=== PATIENT | male | born 1960 | race Caucasian/White ===

== ENCOUNTER 2022-04-24 06:41 | Outpatient (REF) | payer OTHER, SELFPAY ==
[2022-04-24 11:57] LABS: Hemoglobin 18.5 g/dl (14.0-18.0); Mean Corpuscular HGB Conc 33.6 g/dl (31.0-36.0); Mean Corpuscular Hemoglobin 31.7 pg (27.0-33.0); Mean Corpuscular Volume 94.3 fL (80.0-98.0); Mean Platelet Volume 9.7 fL (9.4-12.4); Platelet Count 252 X10*3/uL (160-400); Red Blood Count 5.83 X10*6/uL (4.60-5.80); Red Cell Distribution Width 13.8 % (11.0-16.0); White Blood Count 7.3 X10*3/uL (4.8-10.8)
[2022-04-24 12:25] LABS: Alanine Aminotransferase 18 U/L (0-40); Albumin Level 4.5 g/dL (3.5-5.0); Alkaline Phosphatase 80 U/L (39-117); Anion Gap 17 (12-20); Aspartate Amino Transferase 20 U/L (5-37); Bilirubin Total 0.6 mg/dL (0.0-1.0); Blood Urea Nitrogen 12 mg/dL (9-16); Calcium 9.7 mg/dL (8.4-10.2); Carbon Dioxide 24 mmol/L (22-29); Chloride 105 mmol/L (96-108); Cholesterol 195 mg/dL; Estimated Glomerular Filt Rate > 60; Glucose Fasting 79 mg/dL (60-99); HDL Cholesterol 51 mg/dL; LDL Cholesterol Calculated 120 mg/dl; Potassium 4.3 mmol/L (3.3-5.1); Sodium 142 mmol/L (135-145); Total Protein 6.9 g/dL (6.5-8.0); Triglycerides 122 mg/dL
[2022-04-24 12:29] LABS: Prostate Specific Antigen Scr 0.53 ng/mL (<0.05-4.0); TSH reflex Free T4 1.23 uIU/mL (0.32-4.0)
[2022-04-24 14:57] LABS: Creatinine Urine 165.12 mg/dL; Microalbum/Creatinine Ratio Ur 10.2 ug/mg cr
== END 2022-04-24 06:42 | disposition home or self-care (01) ==
LOC: HO.HMGCLDS 06:41
PROVIDERS: PCP Physician Assistant; Visit Provider Physician Assistant
DX: K40.90 Unilateral inguinal hernia, without obstruction or gangrene, not specified as recurrent (principal); I10 Essential (primary) hypertension; R20.2 Paresthesia of skin; F17.200 Nicotine dependence, unspecified, uncomplicated; Z12.5 Encounter for screening for malignant neoplasm of prostate; Z79.899 Other long term (current) drug therapy
CPT/HCPCS: 36415; 80053; 80061; 82043; 84153; 84443; 85027; 99202

== ENCOUNTER 2022-05-10 13:58 | Outpatient (REF) | payer OTHER, SELFPAY ==
--- NOTE | 2022-05-10 08:45 | EMG_ITS ---
Please see scanned EMG / Nerve Conduction Report. MTDD
== END 2022-05-10 13:59 | disposition home or self-care (01) ==
LOC: HO.NEURO 13:58
PROVIDERS: PCP Physician Assistant; Visit Provider Physician Assistant
DX: R20.2 Paresthesia of skin (principal)
CPT/HCPCS: 95885; 95913

== ENCOUNTER 2022-05-13 05:02 | Emergency (ER) | payer OTHER, SELFPAY ==
--- NOTE | ~2022-05-13 | CT_ITS ---
EXAMINATION: CT ABDOMEN AND PELVIS WITHOUT CONTRAST CLINICAL INFORMATION: Right inguinal hernia x1 year. COMPARISON: None TECHNIQUE: Multidetector volumetric imaging was performed from the superior aspect of the liver through the pubic symphysis. Sagittal and coronal reformatted images were obtained on the technologist's workstation. This CT examination was performed using dose optimization techniques as appropriate, variously including the following: *Automated exposure control *Adjustment of mA and/or kV according to patient size (this includes techniques or standardized protocols for targeted exams where dose is matched to indication/reason for exam; i.e. extremities or head) *Use of iterative reconstruction technique DLP: 544 mGy-cm FINDINGS: LUNG BASES: The visualized lung bases are unremarkable. LIVER, GALLBLADDER, AND BILIARY TREE: The liver is normal in size, shape, and attenuation. A small 6 mm focus of hypoattenuation in hepatic segment 4A is too small to characterize, likely simple cyst. No recommend imaging follow-up. No suspicious focal hepatic lesion or biliary ductal dilatation is present. The gallbladder is contracted with no evidence of radiopaque gallstones, gallbladder wall thickening, or obvious pericholecystic inflammatory changes. PANCREAS: Unremarkable. SPLEEN: Unremarkable. ADRENAL GLANDS: Unremarkable. KIDNEYS AND URETERS: The kidneys are normal in size, shape, and attenuation. No hydronephrosis, hydroureter, or calculi seen. No perinephric stranding. BLADDER: Mild bladder wall thickening. No masses are calculi. GASTROINTESTINAL TRACT: Stomach, small bowel, and colon are normal in caliber. No bowel wall thickening or surrounding inflammatory changes. Appendix is normal. No intraperitoneal free fluid or free air. ABDOMINAL WALL: There is a moderate to large fat containing right inguinal hernia containing. No bowel involvement. No fluid in the hernia sac. Minimal fat stranding. Small direct fat-containing left inguinal hernia. LYMPH NODES: Normal. VASCULAR: Atherosclerotic calcifications are present in the abdominal aorta and iliac arteries. No aneurysmal dilatation. PELVIC VISCERA: Dystrophic calcifications in the central prostate. Prostate gland is normal in size. OSSEOUS STRUCTURES: Moderate to severe degenerative disc disease at L1-L2. No acute fracture or malalignment. Mild osteoarthritis in the hips. CT/CT abdomen pelvis wo IV con IMPRESSION: 1. Moderate to large fat-containing right inguinal hernia. No bowel involvement. No significant findings of strangulation. 2. Small fat-containing direct left inguinal hernia. 3. Mild bladder wall thickening. Consider correlation with urinalysis to exclude cystitis. Fleischner guidelines were followed.
[2022-05-13 05:10] VITALS: BP 138/75; PULSE 98; RESP 18; TEMP 37.1; O2SAT 95
--- NOTE | 2022-05-13 05:37 | ED_ITS ---
HPI - General Adult General Chief complaint: General Medical Stated complaint: hernia Time Seen by Provider: 05/13/22 05:37 Source: patient Mode of arrival: ambulatory Limitations: no limitations History of Present Illness HPI narrative: Patient history of recurrent reducible right inguinal hernia, hypertension comes here for worsening of pain in right inguinal area with more frequent hernia popping out with any movement. Patient was seen by surgeon 5 weeks ago who refused surgery as patient smokes patient comes here for 2nd opinion to find different surgeon who can do the surgery as he cannot stop smoking patient has decreased smoking but unable to quit no nausea no vomiting no fever Related Data Previous Rx's Medication Instructions Recorded blood pressure test kit-medium #1 ea 04/18/22 lisinopril 5 mg tablet 5 mg PO DAILY #30 tabs 04/18/22 Allergies Allergy/AdvReac Type Severity Reaction Status Date / Time No Known Allergies Allergy Verified 04/24/22 11:08 [No Known Allergies*] Review of Systems Review of Systems: Yes all other systems are reviewed and are negative [facility] Family History Family History Father Cancer Social History Social History Housing: House Alcohol intake: current Alcohol intake frequency: 0-2 drinks per day Alcohol type: hard liquor Patient Tobacco Use Status: Current everyday Tobacco user Tobacco use type: Cigarette Cigarettes Per Day: 10 Smoked in Last 30 Days: Yes e-Cigarette/Vaping Use: Never Used Use of substances other than those prescribed or required for medical reasons: No Advance Directives: No Advance Directives Information Provided: No service: No Current occupational status: employed (Pt works Part-time.) and retired 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 Oriented X3. No acute distress. Eyes: PERRLA, No Nystagmus ENT: Pharynx normal. Oral Mucosa moist Neck: Normal inspection. Neck supple. CVS: Normal heart rate and rhythm. Pulses normal. Respiratory: No respiratory distress. Equal air entry bilateral, no wheezing/rales/rhonchi Abdomen: Soft and nontender. Bowel sounds are present, right inguinal direct hernia reducible slight tenderness Skin: Skin warm and dry. Normal skin color. Normal skin turgor. Extremities: No lower extremity edema. No calf tenderness Neuro: Oriented X 3. No motor deficit. Medical Decision Making MDM Narrative Medical decision making narrative: Patient with moderate to large fat containing right inguinal hernia no bowel involvement no significant finding of strangulation will discharge patient home advised to follow with surgeon Discharge Plan Discharge Clinical Impression: Right inguinal hernia Patient Disposition: Home, Self-Care Prescriptions: No Action lisinopril 5 mg tablet 5 mg PO DAILY Qty: 30 1RF (DME) blood pressure test kit-medium Kit See Rx Instructions .Route Qty: 1 0RF Rx Instructions: As directed
[2022-05-13 05:53] VITALS: BP 146/95; PULSE 88; RESP 14; TEMP 37.1; O2SAT 96
--- NOTE | 2022-05-13 06:04 | PC.NURSE ---
Pt changed over into hospital gown from the waist up.Pt personal belongings placed in personal belonging bag. Call guerra in reach and blanket given to Pt.
== END 2022-05-13 07:07 | disposition home or self-care (01) ==
PROVIDERS: Emergency Provider Internal Medicine; PCP Physician Assistant
DX: K40.91 Unilateral inguinal hernia, without obstruction or gangrene, recurrent (principal); F17.210 Nicotine dependence, cigarettes, uncomplicated
CPT/HCPCS: 74176; 99284

== ENCOUNTER 2022-05-16 07:13 | Emergency (ER) | payer OTHER, SELFPAY ==
[2022-05-16 07:22] VITALS: BP 153/87; PULSE 75; RESP 16; TEMP 36.8; O2SAT 99; BMI 23.6
[2022-05-16 07:42] VITALS: BP 129/76; PULSE 74; RESP 12; TEMP 37; O2SAT 97
--- NOTE | 2022-05-16 08:47 | ED.GENADULT ---
HPI - General Adult General Chief complaint: General Medical Stated complaint: Hernia Time Seen by Provider: 05/16/22 08:22 Source: patient Mode of arrival: ambulatory Limitations: no limitations History of Present Illness HPI narrative: Patient is a 62-year-old male who presents emergency department for re-evaluation of a right inguinal hernia. He states he was seen by a surgeon recently and also evaluated in the emergency department 3 days ago for the same thing. He states that he is still able to reduce the hernia manually. It is painful. Denies fevers, chills nausea, vomiting, abdominal pain, inability to urinate, inability to move the bowels, skin color changes around it. He states that he has an appointment with General surgery office , and has an appointment with his primary care provider 06/12/2022 so that he may have a physical. He states that he came here today because no hernia keeps popping out, sometimes up to 10 times a day and he would like something to be done about it sooner than May. Related Data Previous Rx's Medication Instructions Recorded blood pressure test kit-medium #1 ea 04/18/22 lisinopril 5 mg tablet 5 mg PO DAILY #30 tabs 04/18/22 Allergies Allergy/AdvReac Type Severity Reaction Status Date / Time No Known Allergies Allergy Verified 04/24/22 11:08 [No Known Allergies*] Review of Systems Review of Systems: Constitutional: No weight loss, fever, chills, weakness or fatigue. Skin: No rash or itching. Cardiovascular: No chest pain, No palpitations Respiratory: No shortness of breath, cough or sputum production. Gastrointestinal: No anorexia, nausea, vomiting or diarrhea. No abdominal pain or blood in stool. Genitourinary: No burning micturition. No urinary frequency or incontinence. positive inguinal hernia as noted in HPI Psychiatric: No depression or anxiety. Yes all other systems are reviewed and are negative [facility] Past Medical History Attestation statement: The following information was validated with the patient. 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 No acute distress.?Normal affect. Eyes: Pupils equal, round and reactive to light.? ENT: Pharynx normal.?? Neck: Normal inspection.? Neck supple.?? CVS: Heart sounds normal. Normal heart rate and rhythm.? Pulses normal.?? Respiratory: No respiratory distress.? Lung sounds clear to auscultation bilaterally?? Abdomen: Soft and non-tender. Normoactive bowel sounds. No pulsatile mass.? large right inguinal hernia palpable upon examination, able to manually reduce without difficulty or complication.? Skin: Skin warm and dry.? Normal skin color.? Extremities: No lower extremity edema.? Neuro: Moves all extremities spontaneously. Sensation intact bilaterally. No focal neuro deficits. Ambulates with normal steady gait. Course Course Course Narrative: Patient is a 62-year-old male presenting for re-evaluation of the right inguinal hernia requesting surgical repair. Patient reports onset to be approximately 2-3 years ago, however recently the hernia has been protruding more frequently and it is painful. However, he is able to manually reduce it without complication. Upon examination there are no concerning findings for strangulation or obstruction. He was seen by General surgery Dr. Urbano and was advised that he needed evaluation by a primary care provider for a physical exam is he is not seen MD in a significant number of years, and was advised The for open right inguinal repair with mesh that he needed to decrease tobacco smoking or cessation as this would impair healing time. He presented to the emergency department 05/13/2022 requesting a 2nd opinion as he feels that he cannot stop smoking. At that time a CT was obtained which revealed a moderate to large fat containing hernia of the right inguinal without bowel involvement. he was advised to follow up with General surgery. IV patient aware that without evidence of strangulation or obstruction there is no indication for emergent surgery. would not be able to arrange for sooner procedure for him, advised that he may consider consult an additional surgical office is should he wish to. Recommend supportive undergarments, and avoiding particular activities that tend to make the hernia protrude. Patient verbalized understanding of this. We discussed worrisome signs and symptoms to return back to emergency department for. All questions answered. Patient discharged in stable condition. Medical Decision Making Medical Records Medical records reviewed: Yes I reviewed the patient's medical records. Discharge Plan Discharge Clinical Impression: Right inguinal hernia Patient Disposition: Home, Self-Care Additional Instructions: Please follow-up with General surgery and your primary care provider as scheduled. Return to the emergency department any new or worsening symptoms or concerns. Prescriptions: No Action lisinopril 5 mg tablet 5 mg PO DAILY Qty: 30 1RF (DME) blood pressure test kit-medium Kit See Rx Instructions .Route Qty: 1 0RF Rx Instructions: As directed Referrals: Ramesh Summers PA-C [Primary Care Provider] -
== END 2022-05-16 09:02 | disposition home or self-care (01) ==
PROVIDERS: Emergency Provider Emergency Medicine; PCP Physician Assistant
DX: K40.90 Unilateral inguinal hernia, without obstruction or gangrene, not specified as recurrent (principal); Z79.899 Other long term (current) drug therapy
CPT/HCPCS: 99282; 99283

== ENCOUNTER → 2022-06-05 09:51 | Outpatient (BNVA) | payer OTHER, SELFPAY | PROVIDERS: PCP Physician Assistant; Visit Provider Orthopaedic Surgery | DX: G56.03 Carpal tunnel syndrome, bilateral upper limbs (principal) | CPT/HCPCS: 99202 ==

== ENCOUNTER → 2022-06-07 10:33 | Outpatient (BNVA) | payer OTHER, SELFPAY | PROVIDERS: PCP Physician Assistant; Visit Provider Surgery | DX: K40.90 Unilateral inguinal hernia, without obstruction or gangrene, not specified as recurrent (principal) | CPT/HCPCS: 99212 ==

== ENCOUNTER 2022-06-29 11:03 | Day surgery (SDC) | payer OTHER, SELFPAY ==
--- NOTE | 2022-06-29 09:19 | P.OP_ITS ---
Operative Note Operative Note Date of Service: 06/29/22 Narrative: Preop diagnosis: 1. Left Carpal tunnel syndrome Postop diagnosis: same Procedure: 1. left Carpal tunnel release Surgeon: Harriet Renteria MD Anesthesia: local block using 1% lidocaine with epinephrine Findings: Thickened transverse carpal ligament. EBL: Less than 5 mL Specimens: None Complications: None Disposition: Brought to recovery room in stable condition Plan: Follow-up for 10-14 days for wound check and suture removal Indications: The patient is 62 years old, with left carpal tunnel syndrome that has been unresponsive to nonoperative management. The risks and benefits o f operative treatment including but not limited to risk of damage to blood vessels, nerves, tendons, infection, persistent pain, persistent symptoms, or possible need for additional surgery were discussed with the patient and the patient wishes to proceed with surgery. Procedure: Once consent was obtained a local block was performed using a combination of 1% lidocaine with epinephrine. The patient was then brought back to the operating suite and placed on the operative table in supine position. A tourniquet was applied to the proximal aspect of the left upper extremity and the limb was prepped and draped in a standard surgical fashion. Once assured that we had a good block, a 2.0 cm longitudinal incision was made centered over the carpal tunnel. The incision was made through the skin to the subcutaneous tissues using a #15 blade. Dissection was made down to the level of the transverse carpal ligament with care being taken to protect the palmar cutaneous nerve. Once the transverse carpal ligament was clearly visualized, a longitudinal incision was made in the transverse carpal ligament 1st using a #15 blade, then using tenotomy scissors under direct visualization. Care was taken to look for and protect the motor branch of the median nerve when seen in this area. Once satisfied with our carpal tunnel release the wound was copiously irrigated with normal saline and hemostasis was obtained with a brief period of local pressure. The skin edges were reapproximated with some 5.0 nylon suture material and a sterile dressing was applied. The patient appears to have tolerated the procedure well and with no complications. All digits were well vascularized at the conclusion of the case.
[2022-06-29 11:20] VITALS: BP 171/96; PULSE 79; RESP 16; TEMP 37.1; O2SAT 96; BMI 22.4
[2022-06-29 12:52] VITALS: BP 164/101; PULSE 77; RESP 18; O2SAT 96
== END 2022-06-29 12:56 | disposition home or self-care (01) ==
PROVIDERS: PCP Physician Assistant; Visit Provider Orthopaedic Surgery
PROC: (CPT 64721; principal; 2022-06-29 12:50)
DX: G56.02 Carpal tunnel syndrome, left upper limb (principal); R20.0 Anesthesia of skin; R20.2 Paresthesia of skin; I10 Essential (primary) hypertension; Z79.899 Other long term (current) drug therapy; F17.210 Nicotine dependence, cigarettes, uncomplicated
CPT/HCPCS: 64721

== ENCOUNTER → 2022-07-12 13:18 | Outpatient (BNVA) | payer OTHER, SELFPAY | PROVIDERS: PCP Physician Assistant; Visit Provider Orthopaedic Surgery | DX: Z13.89 Encounter for screening for other disorder (principal) ==

== ENCOUNTER → 2022-07-14 09:08 | Day surgery (SDC) | payer OTHER, SELFPAY ==
[2022-07-11 12:59] VITALS: BMI 23.8
[2022-07-14 09:18] VITALS: BP 150/91; PULSE 71; RESP 18; TEMP 36.8; O2SAT 98
[2022-07-14] MEDS: Lactated Ringers 1,000 ML 50 ML IVCONT (09:35)
--- NOTE | 2022-07-14 13:07 | PC.NURSE ---
pt cancelled will reschedule in the am
== END ==
PROVIDERS: PCP Physician Assistant; Visit Provider Surgery
DX: K40.90 Unilateral inguinal hernia, without obstruction or gangrene, not specified as recurrent (principal); Z53.8 Procedure and treatment not carried out for other reasons
CPT/HCPCS: J0690

== ENCOUNTER 2022-09-12 07:36 | Day surgery (SDC) | payer OTHER, SELFPAY ==
[2022-08-16 11:07] VITALS: BMI 23.5
--- NOTE | 2022-09-11 09:12 | P.CONAN_ITS ---
Documented by User: Ree Parks NP 09/11/22 09:16 HPI - Anesthesia Eval Consult details Narrative: 62yo M for Right Hernia Repair Inguinal with poss mesh PMFSH Active Problems Active Problems: All Active Problems (Updated 08/16/22 @ 11:09 by Amanda Pinedo RN) Tobacco dependence (Acute) HTN (hypertension) (Acute) Left hand paresthesia (Acute) Right inguinal hernia (Acute) Carpal tunnel syndrome (Acute) Carpal tunnel syndrome of right wrist (Acute) Carpal tunnel syndrome of left wrist (Acute) Annual physical exam (Acute) Positive colorectal cancer screening using Cologuard test (Acute) Colon cancer screening (Acute) Polycythemia (Acute) Benign essential hypertension (Acute) Right inguinal hernia (Acute) Smoker (Acute) Past Medical History Medical History Benign essential hypertension Polycythemia Right inguinal hernia Smoker Family History Family History Father Cancer Surgical History Surgical History History of carpal tunnel release Hx of knee surgery Hx of tonsillectomy Social History Social History Housing: House Are you a primary transitional care liaison to a significant other at home: No Do you presently have visiting nurse or other home services: No Alcohol intake: current Alcohol intake frequency: 0-2 drinks per day Alcohol type: hard liquor Patient Tobacco Use Status: Current everyday Tobacco user Tobacco use type: Cigarette Cigarettes Per Day: 4 Years Smoked: 45 e-Cigarette/Vaping Use: Never Used Second Hand Smoke Exposure: No service: No Current occupational status: employed (Pt works Part-time.) and retired 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, 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 Cognitive needs: No Hearing needs: No Vision needs: No Meds Allergies Allergy/AdvReac Type Severity Reaction Status Date / Time lisinopril AdvReac Mild recurrent Verified 09/06/22 09:30 cough Exam Exam Date and Time: September 11, 2022 0912 Height,Weight and Vital Signs: Height 5 ft 10 in Weight 74.389 kg Pertinent Lab Results Pertinent Lab Results: Laboratory Tests 04/24/22 04/24/22 07:02 07:02 WBC 7.3 Hgb 18.5 H Hct 55.0 H Plt Count 252 Sodium 142 Potassium 4.3 Chloride 105 Carbon Dioxide 24 BUN 12 Creatinine 0.81 Assessment and Plan Assessment Anesthesia Assessment: Chart Reviewed Documented by User: Casye Garsia MD 09/12/22 14:34 PMFSH Past Medical History Medical History Benign essential hypertension Polycythemia Right inguinal hernia Smoker Family History Family History Father Cancer Family history of problems with anesthesia: No Surgical History Surgical History History of carpal tunnel release Hx of knee surgery Hx of tonsillectomy History of Problems with Anesthesia: No Social History Social History Housing: House Are you a primary transitional care liaison to a significant other at home: No Do you presently have visiting nurse or other home services: No Alcohol intake: current Alcohol intake frequency: 0-2 drinks per day Alcohol type: hard liquor Patient Tobacco Use Status: Current everyday Tobacco user Tobacco use type: Cigarette Cigarettes Per Day: 4 Years Smoked: 45 e-Cigarette/Vaping Use: Never Used Second Hand Smoke Exposure: No service: No Current occupational status: employed (Pt works Part-time.) and retired 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, 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 Cognitive needs: No Hearing needs: No Vision needs: No Meds Allergies Allergy/AdvReac Type Severity Reaction Status Date / Time lisinopril AdvReac Mild recurrent Verified 09/06/22 09:30 cough Exam Airway Mallampati Class: II TM Dist: >3cm Neck ROM: Full Loose/Missing/Broken Teeth: Yes Assessment and Plan Assessment Anesthesia Assessment: Anesthesia Plan Discussed Final Anesthetic Review Family History of Problems with Anesthesia: No History of Problems with Anesthesia: No NPO: Yes ASA Class: II Final Preanesthetic Review: No Changes in Pt Med Stat, Meds/Allgs Chart Reviewed, Consent Obtained/Reviewed and Anes Risks/Benef Reviewed Patient Risk: Low Procedure Risk: Low Anesthetic Plan Anesthetic Plan: GA Disposition: Standard PACU
[2022-09-12] VITALS (9 sets, daily range): BP systolic 108–165; BP diastolic 41–106; PULSE 56–69; RESP 12–16; TEMP 36.4–36.9; O2SAT 95–96
[2022-09-12] MEDS: Lactated Ringers 1,000 ML 100 ML IVCONT (08:44)
--- NOTE | 2022-09-12 09:36 | MHC.SHP ---
Pre-Procedural Eval Section A Date of Service: 09/12/22 Section B Chief Complaint: Unilateral inguinal hernia, without obstruction or Details of Present Illness: has a right inguinal hernia, with symptoms, Relevant Family History (Specify if Yes): No Relevant Social History: Tobacco Use Present Medications: see Short Stay Collaborative assessment Medical History: Significant History ( smoker, hypertension, polycythemia) History of Previous Operations: No relevant previous surgery Allergies: Allergies Allergy/AdvReac Type Severity Reaction Status Date / Time lisinopril AdvReac Mild recurrent Verified 09/06/22 09:30 cough Review of Systems Sugical H&P ROS: Negative: Constitution, Cardiovascular, Respiratory, Neurological, Psychiatric, Hem-Onc, Allergic/Immunologic, Gastrointestinal, Genitourinary, Musculoskeletal, Integumentary, Endocrine and Eyes/Ears/Nose/Throat Exam Surgical H&P Exam: Normal: HEENT, Normal: Heart, Normal: Lungs, Normal: Extremities, Normal: Skin and Normal: Neurological and Significant Findings: Abdomen ( right inguinal hernia, partially reducible) Plan Diagnosis/Plan: Unchanged I have reviewed the history and physical and performed a pertinent physical examination on my patient. No changes have occurred unless specified. Time Spent With Patient Time: Total time managing care of this patient today ____ minutes.
--- NOTE | 2022-09-12 11:02 | P.OP_ITS ---
Operative Note Operative Note Date of Service: 09/12/22 Narrative: Preop diagnosis: Right inguinal hernia Postop diagnosis: Right inguinal hernia, indirect, with chronically incarcerated omentum Procedure: Repair of a right inguinal hernia with mesh, with partial omentectomy Surgeon: Micheal Alonzo MD nursing home assistant: JESUS Burns The patient is a 62-year-old male with a mass in the right groin extending into the scrotum consistent with a right inguinal hernia. In view of symptoms he wanted to proceed with repair. He understood technique of repair with mesh. He was aware of the risks, benefits, and alternatives. He was brought to the operating room placed supine under general anesthesia via laryngeal mask airway. The right groin was prepped and draped in the usual sterile fashion. A surgical time-out was done. The patient received cefazolin 2 g IV preoperatively I infiltrated my planned line of incision with lidocaine 1%. I made a short incision along an imaginary line from the anterior superior iliac spine to the pubic ramus using blade 15. This was carried down with electrocautery through the full-thickness of the skin subcutaneous fat until was able to visualize the external oblique aponeurosis. I bluntly dissected the external oblique a poneurosis with gauze until was able to identify the external ring. I made a short incision on the external oblique aponeurosis overlying the canal using blade 15 and extended this inferomedially with an open tip pair of scissors to connect with the external ring. The inguinal canal was therefore entered. I applied hemostats on the divided edges of the aponeurosis. I bluntly dissected the underside of the external oblique aponeurosis to create a pocket for the mesh. I then proceeded to do blunt dissection of the spermatic cord and its contents using my index finger. There was note of a large sac and a lot of hernia contents of this part of the procedure was difficult. Eventually, as able to pass a Raul drain around the entire cord as well as the accompanying hernia sac. There was note of a lot omental fat within the sac making dissection difficult. I therefore opened the sac and. There was note of a lot of omentum within the sac that could not be reduced to the internal ring. I therefore asked to do partial omentectomy by removing part of the omentum with serial clamping and ligation in between clamps. This part of omentum that was removed was sent as a specimen. By removing this, we were able to reduce the rest of the hernia contents easily. I was able to identify the vas deferens and the accompanying vessels. There was protected and preserved during the rest of the dissection. I the rest of the sac off of this structures until was able to reduce this to the internal ring. I reinforced this internal ring with the medium-sized Prolene plug. This plug was secured with Prolene 2 sutures to shelving edge of the inguinal meant laterally and the internal oblique superiorly and medially using the inner leaves of the mesh and Prolene 2 sutures I then reinforced the floor of the canal with a keyhole mesh. The tails of the mesh were passed around the cord at the level of the internal ring and were secured together with Prolene 2 sutures. I flattened the mesh on the floor of the canal. I secured this mesh to the shelving edge of the inguinal meant laterally, the internal oblique superiorly and medially, and the pubic ramus inferomedially using Prolene 2 sutures I observed for hemostasis. Once hemostasis was confirmed, I Irrigated. I removed the Raul drain. I closed the external oblique aponeurosis with the finding Dexon 2-0 stitch to re-create the external ring. I made sure that there were no nerves trapped between the sutures The subcutaneous layer was reapposed with Dexon 3-0 interrupted sutures. Skin closure was achieved with Dexon 4-0 subcuticular running sutures. The area was infiltrated with Marcaine 0.5% for postop analgesia. Dressings were applied and the procedure was completed The patient tolerated procedure well. There were no immediate complications. Initial and final counts of sponges and instruments were correct. Estimated blood loss was about 20 cc The patient was extubated without difficulty and transferred to the recovery room with stable vital signs.
[2022-09-12] MEDS: Acetaminophen 1,000 MG/100 ML PIGGYBACK 400 MG IV (11:36)
[2022-09-12] MEDS: oxyCODONE HCl Immed Release 5 MG TABLET PO (11:37)
[2022-09-12] MEDS: fentaNYL citrate/PF 100 MCG/2 ML VIAL 25 MCG IVPUSH (11:56)
== END 2022-09-12 12:38 | disposition home or self-care (01) ==
PROVIDERS: PCP Physician Assistant; Visit Provider Surgery
PROC: (CPT 49507; principal; 2022-09-12 09:20)
DX: K40.30 Unilateral inguinal hernia, with obstruction, without gangrene, not specified as recurrent (principal); I10 Essential (primary) hypertension; D75.1 Secondary polycythemia; Z79.1 Long term (current) use of non-steroidal anti-inflammatories (NSAID); Z79.899 Other long term (current) drug therapy; Z88.8 Allergy status to other drugs, medicaments and biological substances; F17.210 Nicotine dependence, cigarettes, uncomplicated
CPT/HCPCS: 49507; 88304; C1781; J0131; J0690; J1885; J2405; J3010

== ENCOUNTER → 2022-09-25 10:38 | Outpatient (BNVA) | payer OTHER, SELFPAY | PROVIDERS: PCP Physician Assistant; Visit Provider Surgery | DX: K40.90 Unilateral inguinal hernia, without obstruction or gangrene, not specified as recurrent (principal) | CPT/HCPCS: 99212 ==

== ENCOUNTER → 2022-10-23 15:37 | Outpatient (BNVA) | payer OTHER, SELFPAY | PROVIDERS: PCP Physician Assistant; Visit Provider Surgery | DX: Z48.815 Encounter for surgical aftercare following surgery on the digestive system (principal); Z87.19 Personal history of other diseases of the digestive system | CPT/HCPCS: 99212 ==

== ENCOUNTER 2023-01-23 12:57 | Outpatient (AMB) | payer OTHER, SELFPAY ==
--- NOTE | 2023-01-23 13:01 | MHC.OFFVIS ---
Intake Vital Signs 01/23/23 13:09 Height 5 ft 10 in Weight 170 lb 3.15 oz BMI 24.4 BP 140/88 H Blood Pressure Location Lt brachial Position Sitting Intake Visit Reasons: wound check, RIH repair 09/12/22 Intake Note: Patient is seen in office for wound check, post right inguinal hernia repair. Patient c/o: for aprox on week notice testicle are getting black and swollen, worse since Sunday, swelling has and pain has increase Bank Note Designer Required: No Accompanied by: Self / Same As Patient Allergies lisinopril Adverse Reaction (Mild, Verified 01/23/23 13:02) recurrent cough Medication List - Last Reconciled 01/23/23 by Corey Gaming MD blood pressure test kit-medium As directed ibuprofen 600 mg PO Q6H PRN losartan 25 mg PO DAILY HPI HPI Comments History of Present Illness Details 62-year-old male patient presenting with a previous history of a right inguinal hernia repaired in August 2022 now with a 2 day history of swelling and bruising in the scrotal sac. 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 He did not perform any heavy lifting and denies any known history of trauma to the scrotum. He reports some pain associated with the swelling and was concerned because the skin was turning black. He denies any pain in the area of the incision of the right groin. He has not palpated a recurrent hernia. PFSH Medical History Benign essential hypertension Polycythemia Right inguinal hernia Smoker Surgical History History of carpal tunnel release History of right inguinal hernia repair (09/12/22) Hx of knee surgery Hx of tonsillectomy Family History Father Cancer Social History Housing: House Are you a primary clinical manager home care to a significant other at home: No Do you presently have visiting nurse or other home services: No Alcohol intake: current Alcohol intake frequency: 0-2 drinks per day Alcohol type: hard liquor Patient Tobacco Use Status: Current everyday Tobacco user Tobacco use type: Cigarette Cigarettes Per Day: 4 Years Smoked: 45 e-Cigarette/Vaping Use: Never Used Second Hand Smoke Exposure: No service: No Current occupational status: employed (Pt works Part-time.) and retired Current occupation: [employer], 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 Cognitive needs: No Hearing needs: No Vision needs: No Review of Systems Const All systems reviewed & are unremarkable except as noted in HPI and below Physical Exam Const General: no acute distress and well developed Nutritional Appearance: well nourished Orientation/consciousness: patient oriented x3 Limitations: no limitations Resp Effort & Inspection: normal respiratory effort GI Inspection: Yes normal to inspection Palpation (GI): Soft to palpation, nontender, no guarding and not rigid Other: Scrotal sac is mildly swollen on the right side with dependent ecchymosis. Findings may be suggestive of a hydrocele or hematoma. Palpation of the testicle and epididymis reveals no tenderness. Inguinal incision is clean, dry, and intact. No hernia recurrence noted with Valsalva maneuvers. Male genitals images: 1. Area of ecchymosis right testicle Neuro General: patient oriented x3 Assessment & Plan Assessment & Plan (1) Traumatic scrotal hematoma: Code(s): S30.22XA - Contusion of scrotum and testes, initial encounter Plan Probable right sided hematoma extending into the scrotal sac with no evidence of recurrent hernia. No evidence of torsion or vascular compromise of the testicles. Recommended evaluation with ultrasound of the scrotum. I will call him with the results once available. Orders: Orders US scrotum Today S30.22XA - Contusion of scrotum and testes, initial encounter Coding Level of Care Code Est Pt Level 3 (79993) Diagnoses Traumatic scrotal hematoma S30.22XA
[2023-01-23 13:09] VITALS: BP 140/88; BMI 24.4
== END 2023-01-23 13:23 | disposition home or self-care (01) ==
PROVIDERS: PCP Physician Assistant; Visit Provider Surgery
DX: S30.22XA Contusion of scrotum and testes, initial encounter (principal)
CPT/HCPCS: 99213

== ENCOUNTER → 2023-01-23 12:57 | Outpatient (BNVA) | payer OTHER, SELFPAY | PROVIDERS: PCP Physician Assistant; Visit Provider Surgery | DX: S30.22XD Contusion of scrotum and testes, subsequent encounter (principal) | CPT/HCPCS: 99212 ==

== ENCOUNTER 2023-01-30 12:45 | Outpatient (REF) | payer OTHER, SELFPAY ==
--- NOTE | ~2023-01-30 | US_ITS ---
EXAMINATION: US SCROTUM CLINICAL INFORMATION: Swelling-bruising in scrotal sac beginning 01/20/2023. Status post right inguinal hernia repair August 2022. Question hematoma, hydrocele. COMPARISON: CT abdomen and pelvis from 05/13/2022. TECHNIQUE: A sonogram of the scrotum was performed assessing eckert-scale appearance and color Doppler flow. Spectral Doppler analysis of the arterial and venous flow were performed in the testes bilaterally. FINDINGS: RIGHT: Right testicle measures 4.9 x 2.6 x 3.2 cm, volume 21.4 mL. The testicle has normal echotexture. No microlithiasis or mass. Color Doppler images with spectral waveforms show presence of normal arterial and venous flow within the right testicle. There are a few small simple cysts of the epididymal head, largest measuring up to 0.7 cm. Small hydrocele is present. No evidence of scrotal hematoma or extratesticular mass. LEFT: Left testicle measures 4.8 x 2.3 x 2.9 cm, volume 16.8 mL. The testicle has normal echotexture. No microlithiasis or mass. Color Doppler images with spectral waveforms show presence of normal arterial and venous flow within the left testicle. The epididymis is normal. Small, normal amount of fluid is present in the left scrotal sac. No evidence of scrotal hematoma or extratesticular mass. US/US scrotum IMPRESSION: * The testicles are normal. * Small right-sided hydrocele is present. * There are a few cysts of the right epididymal head, largest 0.7 cm.
== END 2023-01-30 12:46 | disposition home or self-care (01) ==
LOC: HO.HMGCX 12:45
PROVIDERS: PCP Internal Medicine; Visit Provider Surgery
DX: S30.22XA Contusion of scrotum and testes, initial encounter (principal); X58.XXXA Exposure to other specified factors, initial encounter; Y93.9 Activity, unspecified; Y92.9 Unspecified place or not applicable; Y99.9 Unspecified external cause status
CPT/HCPCS: 76870